=== PATIENT | male | born 1965 | race Caucasian/White ===

== ENCOUNTER 2018-07-20 15:44 | Emergency (ER) | payer SELFPAY ==
[~2018-07-20] VITALS: Wt 97.9 kg
[2018-07-20 16:34] VITALS: Wt 97.9 kg
[2018-07-20] MEDS ORDERED: KETOROLAC 30 MG INJ IM STA (18:49)
[2018-07-20] MEDS ORDERED: CYCL10TA7 PO (18:59)
[2018-07-20] MEDS ORDERED: IBUP800T48 PO (18:59)
[2018-07-20] MEDS ORDERED: HYDROCODONE/APAP (10/325) TAB PO ONE (19:00)
--- NOTE | 2018-07-20 19:02 | ERD ---
ER Documentation Chief Complaint Chief Complaint R low back pain x1d: pulled muscle 'wiping self on toilet'. no relief aleve HPI 53-year-old male presents with right-sided mid and lower back pain began today. He states he was sitting on the toilet and he turned to the right to gradually paper and when he felt pain on his right side. He tried taking Aleve at home but did not help. No bowel or bladder incontinence or saddle anesthesia. No fall or trauma. No fever. ROS All systems reviewed and are negative except as per history of present illness. Medications Home Meds Active Scripts Ibuprofen* (Motrin*) 800 Mg Tab, 800 MG PO Q6, #30 TAB Prov:KATHIA KENDALL PA-C 07/20/18 Cyclobenzaprine Hcl* (Cyclobenzaprine Hcl*) 10 Mg Tablet, 10 MG PO BID, #20 TAB Prov:KATHIA KENDALL PA-C 07/20/18 Allergies Allergies: Coded Allergies: No Known Allergy (Unverified , 07/20/18) PMhx/Soc Medical and Surgical Hx: pt denies Medical Hx, pt denies Surgical Hx History of Surgery: No Anesthesia Reaction: No Hx Neurological Disorder: No Hx Respiratory Disorders: No Hx Cardiac Disorders: No Hx Psychiatric Problems: No Hx Miscellaneous Medical Probl: No Hx Alcohol Use: No Hx Substance Use: No Hx Tobacco Use: No Smoking Status: Never smoker FmHx Family History: No diabetes Physical Exam Vitals Vital Signs Date Temp Pulse Resp B/P (MAP) Pulse Ox O2 O2 Flow FiO2 Time Delivery Rate 07/20/18 98.7 64 16 179/74 98 16:34 (109) Physical Exam Const: No acute distress Head: Atraumatic Eyes: Normal Conjunctiva ENT: Normal External Ears, Nose and Mouth. Neck: Full range of motion. No meningismus. Resp: Clear to auscultation bilaterally Cardio: Regular rate and rhythm, no murmurs Abd: Soft, non tender, non distended. Back Exam: Compartments: Soft Motor: Normal flexion and extension of bilateral hip/knee/ankle/foot Sensation: Intact to light touch throughout Bones: No midline TTP Results 24 hrs Current Medications Medications Dose Sig/Flavio Start Time Status Last (Trade) Ordered Route PRN Stop Time Admin Dose Reason Admin Ketorolac 30 mg ONCE STAT 07/20/18 DC 07/20/18 Tromethamine IM 18:49 07/20/18 18:57 (Toradol) 18:51 1 tab ONCE ONCE 07/20/18 07/20/18 Acetaminophen PO 19:00 07/20/18 18:57 / 19:01 Hydrocodone Bitart ([place] ()) Procedures/MDM The differential diagnosis includes but is not limited to muscle strain, ligament strain, contusion, arthritis, discogenetic disease, non- musculoskeletal, cauda equina syndrome, cord compression, abscess and others. Patient presents with back pain likely strain from twisting. No indication for imaging at this time. Toradol and [place] given here. Prescription for ibuprofen and Flexeril given. Patient counseled regarding my diagnostic impression and care plan. Prior to discharge all questions answered. Pt agrees with treatment plan and understands strict return precautions. Pt is instructed to follow up with primary care provider within 24-48 hours. Precautionary instructions provided including instructions to return to the ER if not improving or for any worsening or changing symptoms or concerns. Departure Diagnosis: Primary Impression: Back pain Condition: Stable Patient Instructions: Back Pain (Acute Or Chronic) Additional Instructions: Llame al doctor AMY y ros addison JESSE PARA DENTRO DE 1-2 SUGGS.Dgale a la secretaria que nosotros le instruimos hacer esta jesse.Avise o llame si swan condicin se empeora antes de la jesse. Regresa aqui si peor o no mejor. KATHIA KENDALL PA-C July 20, 2018 19:02
[2018-07-20 19:07] VITALS: BP 158/74; PULSE 72; RESP 17
== END 2018-07-20 19:07 | disposition home or self-care (01) ==
LOC: FTE 15:44
DX: M54.5 Low back pain (principal)
CPT/HCPCS: 96372; 99284; J1885